=== PATIENT | male | born 1970 | race Caucasian/White ===

== ENCOUNTER 2016-11-05 12:46 | Emergency (ER) | payer OTHER ==
--- NOTE | 2016-11-05 14:02 | ED CLINICAL REPORT ---
Clinical Report - Physicians/Mid Levels [facility] [address] [place] [address] 11/05/2016 12:47 Patient: CARLEY ORTA Time Seen: 12:54. Arrived- By private vehicle. Historian- patient and family. HISTORY OF PRESENT ILLNESS Chief Complaint: NAUSEA, VOMITING and HEADACHE. At its maximum, severity described as moderate. When seen in the E.D., severity described as moderate. Modifying factors- worsened by movement. Relieved by rest. (bright light and noise make the BEDOLLA worse; closing the eyes improves the pain). This started today and is still present. It was gradual in onset and has been waxing/waning. The patient has had a right-sided and left-sided headache, fatigue and generalized weakness. No muscle aches. (Has a migraine and states has been getting migraines on the weekends. This stated at 0230 and pt c/o major head pain in the anglican area. Every time he eats or drinks something he throws up. Patient tried zofran and he still threw up. He states that he has been getting these BEDOLLA's on the weekend when he sleeps longer and deeper - during the week days, he wakes up at 04:00.). Similar symptoms previously: Many times. ( He states that he has the same type of BEDOLLA "every weekend" for "a long time". Today he is noting nausea and vomiting, but otherwise there is nothing new or different about his BEDOLLA today). Recent medical care: The patient was seen recently in a clinic. REVIEW OF SYSTEMS No fever, sore throat, sinus drainage, nasal congestion or cough. No difficulty breathing, chest pain, abdominal pain, diarrhea or black stools. No bloody stools, difficulty with urination, skin rash, back pain or calf pain. The patient has had nausea. He has had moderate vomiting. The vomiting has occurred several times. No bilious emesis, blood-tinged emesis, frankly bloody emesis or unusually dark emesis. He has had a moderate right-sided and left-sided headache. The headache has been similar to previous ones. The patient has a history of migraine headaches. No difficulty with ambulation. All systems otherwise negative, except as recorded above. PAST HISTORY Type II diabetes mellitus. History of headaches. Surgeries: Right carpal tunnel surgery. (Hand surgery). SOCIAL HISTORY Smoker- current status unknown. Occasional alcohol use. No drug use. ADDITIONAL NOTES The nursing notes have been reviewed. PHYSICAL EXAM Vital Signs: 11/05/2016 12:56 BP: 136/86. HR: 86. RR: 18. O2 saturation: 95%. Temp: 97.7 F. Appearance: Alert. Patient in moderate distress. Eyes: Conjunctivae and sclerae appear normal to inspection. Corneas appear normal to inspection. Pupils equal, round and reactive to light. Accommodation normal. Eyes normal inspection. EOMs intact. No scleral icterus or pale conjunctivae. Anterior chambers clear. Anterior chambers of normal depth. Rt Eye: Angle not shallow. Lt Eye: Angle not shallow. ENT: Pharynx normal. No pharyngeal erythema or tonsillar exudate. The mucous membranes are not dry. Neck: Normal inspection. Neck supple. CVS: Normal heart rate and rhythm. Heart sounds normal. Pulses normal. Respiratory: No respiratory distress. Breath sounds normal. Abdomen: No visible injury. Soft and nontender. No mass. Back: Normal inspection. Skin: No cyanosis. Skin warm and dry. Normal skin color. No rash. Normal skin turgor. No pallor or diaphoresis. Extremities: Extremities exhibit normal ROM. No calf tenderness. No lower extremity edema. Neuro: Oriented X 3. No motor deficit. No sensory deficit. Reflexes normal. Reflex exam: left biceps 2+, right patellar 2+, left patellar 2+, right Achilles 2+ and left Achilles 2+. LABS, X-RAYS, AND EKG EKG: EKG time: (13:22). Normal sinus rhythm. Rate: 85. Normal P waves. Normal EMILIA. Normal QRS complex. Normal axis. Normal ST and T waves. The study has been interpreted contemporaneously by me. The EKG appears to be a good tracing. Rhythm Strip #1: Normal sinus rhythm. Regular rhythm. Narrow QRS complexes. No ectopy. Laboratory Tests: CBC w Diff: (MANA: 11/05/2016 13:15) ( MsgRcvd 11/05/2016 13:23) Final results Test Result Flag Units (Reference) WHITE BLOOD COUNT 6.3 K/uL (4.5-11.5) RED BLOOD COUNT 5.24 M/uL (4.50-5.90) HEMOGLOBIN 15.1 gm/dL (13.5-17.5) HEMATOCRIT 44.2 % (41.0-53.0) MEAN CELL VOLUME 84 fL (80-100) MEAN CORPUSCULAR HGB 29 pg (26-34) MEAN CORPUSCULAR HGB CONC 34 g/dL (31-37) RED CELL DISTRIBUTION WIDTH 12.6 % (11.6-14.8) PLATELET COUNT 313 K/uL (150-400) NEUTROPHIL % 71.5 % (50-75) LYMPH % 21.8 L % (25-40) MONO % 5.2 % (3-14) EOSINOPHIL % 1.2 % (0-4) BASOPHIL % 0.3 % (0-2) PT with INR: (MANA: 11/05/2016 13:15) ( [facility] 11/05/2016 13:34) Final results Test Result Flag Units (Reference) INR 1.0 (0.8-1.2) Low Intensity Therapy: INR 1.5-2.0 PT range 18.5-23.1Mod.Intensity Therapy: INR 2.0-3.0 PT range 23.1-31.5High Intensity Therapy: INR 2.5-3.5 PT range 27.4-35.5High Intensity Therapy 2: INR 3.0-4.0 PT range 31.5-39.3 Acetone, Serum: (MANA: 11/05/2016 13:15) ( [facility] 11/05/2016 13:40) Final results Test Result Flag Units (Reference) ACETONE, SERUM QUALITATIVE NEGATIVE (NEGATIVE) BNP: (MANA: 11/05/2016 13:15) ( [facility] 11/05/2016 13:43) Final results Test Result Flag Units (Reference) B-TYPE NATRIURETIC PEPTIDE 49.1 pg/ml (5-100) CHEM 13 PANEL: (MANA: 11/05/2016 13:15) ( MsgRcvd 11/05/2016 14:41) Final results Test Result Flag Units (Reference) GLUCOSE 204 H mg/dL (70-110) BUN 12 mg/dL (7-18) CREATININE 0.7 mg/dL (0.6-1.3) Estimated GFR >60 mL/min Estimated GFR- >60 mL/min Note: Persistent reduction over 3 months in eGFR<60 mL/min/1.73 m2 defines CKD. Patients with eGFR values>=60 mL/min/1.73 m2 may also have CKD if evidence ofpersistent proteinuria. Additional information may be foundat [email or web address].org. SODIUM 138 mmol/L (136-145) POTASSIUM 4.1 mmol/L (3.5-5.1) CHLORIDE 101 mmol/L (98-107) CARBON DIOXIDE 26 mmol/L (21-32) CALCIUM 8.4 L mg/dL (8.5-10.1) TOTAL PROTEIN 8.0 g/dL (6.4-8.2) ALBUMIN 3.9 g/dL (3.3-5.0) BILIRUBIN, TOTAL 0.5 mg/dL (0.0-1.0) ALKALINE PHOSPHATASE 76 U/L (46-116) AST (SGOT) 46 H U/L (15-37) ALT (SGPT) 89 H U/L (12-78) MAGNESIUM 1.8 mg/dL (1.8-2.4) LIPASE 134 U/L (73-393) AMYLASE 38 U/L (25-115) CPK 74 U/L (24-260) TROPONIN I <0.05 ng/mL (0.00-1.5) TROPONIN REFERENCE RANGE:<0.1 NEGATIVE0.1-1.5 INDETERMINANT>1.5 POSITIVE THYROID STIMULATING HORMONE 0.794 uIU/mL (0.34-3.74) . Pulse Oximetry: 11/05/2016 12:56 O2 saturation: 95%. (FIO2 - room air). Interpretation: normal. PROGRESS AND PROCEDURES Course of Care: Pt states that other than nausea/ vomiting, there is nothing new or different about his BEDOLLA today. I have discussed performing CT and / or LP, but he wishes to defer this now as there is a low clinical likelihood of positive result and definite radiation exposure and definite discomfort and risk from LP procedure 14:01 11/05/16. Patient is stable. The patient's symptoms are now gone. Physical exam findings are improved. Patient and spouse counseled in person regarding the patient's test results, diagnosis and need for follow-up. Old ED records reviewed. Disposition: Discharged. Condition: stable and improved. CLINICAL IMPRESSION Chronic, poorly controlled tension and vascular headache. Chronic, moderately well controlled type 2 diabetes with hyperglycemia. No coma. Abnormal liver function test: AST/SGOT and ALT/SGPT. INSTRUCTIONS Do not work for two days. Drink plenty of fluids. No alcohol until released. Warnings: Further evaluation is necessary in order to recheck abnormal lab, obtain test results, conduct further tests and assess the possibility of serious illness (You may need a CT or MRI of your brain if not improving). It is very important to follow up with a physician. SEDATIVE MEDICATION: You were given sedative medication during your visit. Do not drive or operate dangerous machinery. CONTROLLED SUBSTANCE WARNINGS. GENERAL WARNINGS: Return or contact your physician immediately if your condition worsens or changes unexpectedly, if not improving as expected, or if other problems arise. Your Current Medications: CONTINUE TAKING THE FOLLOWING MEDICATIONS: Amaryl Oral. Lipitor Oral. MetFORMIN HCl Oral : 500 mg daily. Omperzole*. Prescription Medications: Hydrocodone/APAP 5mg / 325mg: take 1-2 orally every 8 hours as needed for pain. Dispense ten (10). No refill. Zofran (orally disintegrating tablets) 4 mg: take 1 orally every 8 hours as needed for nausea and vomiting. Dispense ten (10). No refill. Substitution is permissible. Phenergan suppositories 25 mg: Insert 1 rectally every 4 to 6 hours as needed for nausea or vomiting. Dispense ten (10). No refills. Substitution is permissible. Follow-up: Follow up with your doctor tomorrow. (Electronically signed by Isacc Call DO 11/05/2016 15:44)
--- NOTE | 2016-11-05 14:02 | ED NURSING NOTES ---
Clinical Report - Nurses [facility] [address] [place] [address] 11/05/2016 12:47 Patient: CARLEY ORTA TRIAGE Triage time 12:56 Nov 05 2016. Acuity: LEVEL 3. Chief Complaint: HEADACHE and MIGRAINE HEADACHE. ( 196 BG). SOFI COMA SCORE: [place] Coma Scale: 15- eyes open spontaneously (4); best verbal response- oriented x 4 (5); best motor response- obeys commands (6). --13:06 Adenike Jimenez R.N. 12:56 11/05/16. BP: 136/86. HR: 86. RR: 18. O2 saturation: 95%. Temp: 97.7 F. Pain level now 8/10. --13:06 Adenike Jimenez R.N. Weight: 136.5 kg stated. Height/Length: 75 inches Per Patient. BMI: 37.6. --13:05 Adenike Jimenez R.N. Medications MetFORMIN HCl Oral 500 mg, daily. --12:59 Adenike Jimenez R.N. Lipitor Oral. --12:59 Adenike Jimenez R.N. Amaryl Oral. --12:59 Adenike Jimenez R.N. Omperzole. --13:01 Adenike Jimenez R.N. Allergies No Known Drug Allergy. --12:59 Adenike Jimenez R.N. History Arrived by private vehicle. Historian: patient. Accompanied by family. This started last night. Patient was last known well (0830 PM). ( Has a migraine and states has been getting migraines on the weekends. This stated at 0230 and pt c/o major head pain in the sikh area. Every time he eats or drinks something he throws up. Patient tried zofran and he still threw up.). He has had nausea and vomiting. ( Headache). No weakness, numbness, fever or sinus pain. PAST MEDICAL HX: Diabetes mellitus. Headaches. Head injury. SOCIAL HX: Former smoker, end date 2013. Occasional alcohol use; consumes four beers a week. No drug use. No recent travel. No known contact with a sick individual. SELF HARM ASSESSMENT: A self harm assessment was performed. The patient answered "no" to the question "Have you recently felt down, depressed, or hopeless?" and "Do you have thoughts of harming or killing yourself?". FALL RISK ASSESSMENT: Fall risk assessment completed. No fall risk identified. NUTRITIONAL RISK ASSESSMENT: The nutritional risk assessment revealed no deficiencies. FUNCTIONAL ASSESSMENT: Functional assessment: no impairments noted. LEARNING NEEDS ASSESSMENT: The learning needs assessment revealed no barriers. ABUSE ASSESSMENT: Abuse assessment: (yes) The patient was asked "Do you feel safe in your home?". SKIN INTEGRITY ASSESSMENT: Skin integrity risk assessment completed. No skin integrity risk identified. --13: Adenike Jimenez R.N. PROBLEMS: Laceration. Diabetes Mellitus. Abrasion(s). Head Injury. Last Tetanus. --13: Adenike Jimenez R.N. ADDITIONAL SURGERIES: Carpal Tunnel Surgery. --13: Adenike Jimenez R.N. Interventions ID band on patient. --13: Adenike Jimenez R.N. PHYSICAL ASSESSMENT Ambulatory to room. GENERAL / NEURO / PSYCH: Alert. Oriented X 4. Appears in pain. Speech within normal limits. HEENT: No facial asymmetry noted. Sinus tenderness present. Photophobia present. Pupils equal, round and reactive to light. Runny nose. RESPIRATORY: Respirations not labored. Breath sounds within normal limits. CVS: Capillary refill less than 2 seconds. GI / : The patient has had nausea. Emesis noted. Abdomen soft and nontender. ( Yesterday last BM normal.). SKIN: Skin is warm and dry. --13: Adenike Jimenez R.N. NURSING PROGRESS NOTES The initial plan of care for this patient includes an assessment with efforts to address patient positioning and appropriate ambient lighting; impairment of the neurological system. Pulse oximeter and NIBP monitor placed on patient. Cold pack applied. Head of bed elevated 75 degrees. Reassurance given. Lights dimmed. Call light placed in reach. Side rails up x 1. Bed placed in lowest position. Brakes of bed on. --13: Adenike Jimenez R.N. 13:16 11/05/2016 Site #1 started via IV in the right hand with an 18g angiocath, with aseptic technique and good blood return; two attempts. Blood drawn: rainbow set. Labeled in the presence of the patient and sent to the lab. Saline lock flushed with 10 mL saline (Done by Jorge KINNEY). --13:16 Adenike Jimenez R.N. 13:16 11/05/2016 Zofran (Ondansetron HCl) IVP 4 mg given over 2 minute(s) via site #1. Allergies verified and confirmed 5 rights. IV patency established. IV site checked: no pain, redness, or swelling. IV flushed thoroughly pre- and post-medication administration. --13:16 Adenike Jimenez R.N. 13:18 11/05/2016 Started bag #1 1000 mL IV Fluids IV NS (Saline); at 1000 mL/hr over 1 hour(s) via site #1 via dial-a-flow. Allergies verified and confirmed 5 rights. IV patency established. IV site checked: no pain, redness, or swelling. IV flushed thoroughly pre- and post-medication administration. --13:18 Adenike Jimenez R.N. 13:19 11/05/2016 Dilaudid (HYDROmorphone HCl PF) IVP 1 mg given over 1 minute(s) via site #1. Allergies verified, confirmed 5 rights and sedative warning given to the patient and patient's family. IV patency established. IV site checked: no pain, redness, or swelling. IV flushed thoroughly pre- and post-medication administration. --13:19 Adenike Jimenez R.N. 13:19 11/05/2016 PHENERGAN (Promethazine HCl) IVP 12.5 mg given over 15 minute(s) via site #1. Allergies verified and confirmed 5 rights. IV patency established. IV site checked: no pain, redness, or swelling. IV flushed thoroughly pre- and post-medication administration. --13:19 Adenike Jimenez R.N. 13:39 11/05/16. EKG time: (1322 PM). EKG was ordered, performed by a tech and shown to the ED physician. --13:39 Claribel Hallman. DISPOSITION / DISCHARGE 14:25 11/05/2016 IV Fluids IV NS Discontinued: bag #1 infused. Total amount infused: 1000 mL. IV patency established. IV site checked: no pain, redness, or swelling. IV flushed thoroughly. --14:30 Adenike Jimenez R.N. 14:29 11/05/2016 Site #1 removed upon discharge. Catheter intact. Pressure dressing applied. --14:29 Adenike Jimenez R.N. Departure time: 14:Nov 05 2016. Condition at departure: improved. No learning barriers present. Discharge instructions provided and reviewed with the patient. Reviewed warnings. Reviewed medication(s). Treatments reviewed. Reviewed referrals. Patient verbalized understanding. Written instructions provided in Divehi. The patient was discharged home and accompanied by spouse. He left the Emergency Department ambulatory and via private vehicle. Patient driving. --14:30 Adenike Jimenez R.N. 14:28 11/05/16. BP: 132/82. HR: 86. RR: 11. O2 saturation: 97%. Temp: 98.4 F. Pain level now 0/10. --14:30 Adenike Jimenez R.N. Locked/Released at 11/05/2016 14:55 by Adenike Jimenez R.N.
--- NOTE | 2016-11-05 14:02 | ED ORDER SUMMARY ---
..... Patient: CARLEY ORTA OrderSheet [facility] VisitID: [id number] [place] [address] 46y, M Registration Date/Time: 11/05/2016 ORDER SHEET Weight: 136.5 kg (stated) Allergies: No Known Drug Allergy GENERAL ORDERS: Software Licensing Analyst (Continuous) (12:54 11/05/2016 PHutchinson DO) (Ack 13:08 OHushanandez) (13:21 LWhalen R.N.) UA-Culture if indicated Urgent (12:55 11/05/2016 PHutchinson DO) (Ack 13:06 OHushanandez) Cardiac Panel Stat (12:55 11/05/2016 PHutchinson DO) (Ack 13:06 OHushanandez) (13:18 JSimbeck R.N.) BNP Urgent (12:55 11/05/2016 PHutchinson DO) (Ack 13:06 OHushanandez) (13:18 JSimbeck R.N.) Amylase Urgent (12:55 11/05/2016 PHutchinson DO) (Ack 13:07 OHernandez) (13:18 JSimbeck R.N.) PT with INR Urgent (12:55 11/05/2016 PHutchinson DO) (Ack 13:07 OHernandez) (13:19 JSimbeck R.N.) TSH Urgent (12:55 11/05/2016 PHutchinson DO) (Ack 13:07 OHernandez) (13:19 JSimbeck R.N.) Urine Drug Screen Urgent (12:55 11/05/2016 PHutchinson DO) (Ack 13:07 OHernandez) Lipase Urgent (12:55 11/05/2016 PHutchinson DO) (Ack 13:07 OHernandez) (13:19 JSimbeck R.N.) Pulse oximeter (12:55 11/05/2016 PHutchinson DO) (Ack 13:08 OHernandez) (13:21 LWhalen R.N.) EKG - ER Stat (12:55 11/05/2016 PHutchinson DO) (Ack 13:14 OHernandez) (13:14 OHernandez) Vitals (12:55 11/05/2016 [facility]) (Ack 13:08 OHushanandez) (13:18 JSimbeck R.N.) POC Glucose (12:55 11/05/2016 [facility]) (13:07 LWhalen R.N.) Acetone, Serum Urgent (12:56 11/05/2016 [facility]) (Ack 13:07 INjorge) (13:19 JSimbeck R.N.) MEDICATION ORDERS: Phenergan IV 12.5 mg (HIGH ALERT MEDICATION, NOW) (13:06 11/05/2016 [facility]) (13:19 LWhalen R.N.) IV FLUIDS: IV NS : initial bolus 1000 mL (1000 mL/hr), then 500 mL/hr for X2 (NOW) (12:54 11/05/2016 [facility]) (13:18 LWhalen R.N.) Zofran IV 4 mg (may repeat x 1 prn nausea) (12:55 11/05/2016 [facility]) (13:16 LWhalen R.N.) Dilaudid IV 1 mg (HIGH ALERT MEDICATION, NOW) (13:06 11/05/2016 [facility]) (13:19 LWhalen R.N.) ORDER SHEET NOTES: [Electronically signed by Adenike Jimenez R.N. (14:55 11/05/2016)] [Electronically signed by Isacc Call DO (15:44 11/05/2016)] [Electronically locked/signed by Adenike Jimenez R.N. (14:55 11/05/2016)]
--- NOTE | 2016-11-05 14:02 | ED ORDER SUMMARY ---
..... Patient: CARLEY ORTA OrderSheet [facility] VisitID: [id number] [place] [address] 46y, M Registration Date/Time: 11/05/2016 ORDER SHEET Weight: 136.5 kg (stated) Allergies: No Known Drug Allergy GENERAL ORDERS: Crane Service Technician (Continuous) (12:54 11/05/2016 PHutchinson DO) (Ack 13:08 OHushanandez) (13:21 LWhalen R.N.) UA-Culture if indicated Urgent (12:55 11/05/2016 PHutchinson DO) (Ack 13:06 OHushanandez) Cardiac Panel Stat (12:55 11/05/2016 PHutchinson DO) (Ack 13:06 OHushanandez) (13:18 JSimbeck R.N.) BNP Urgent (12:55 11/05/2016 PHutchinson DO) (Ack 13:06 OHushanandez) (13:18 JSimbeck R.N.) Amylase Urgent (12:55 11/05/2016 PHutchinson DO) (Ack 13:07 OHernandez) (13:18 JSimbeck R.N.) PT with INR Urgent (12:55 11/05/2016 PHutchinson DO) (Ack 13:07 OHernandez) (13:19 JSimbeck R.N.) TSH Urgent (12:55 11/05/2016 PHutchinson DO) (Ack 13:07 OHernandez) (13:19 JSimbeck R.N.) Urine Drug Screen Urgent (12:55 11/05/2016 PHutchinson DO) (Ack 13:07 OHernandez) Lipase Urgent (12:55 11/05/2016 PHutchinson DO) (Ack 13:07 OHernandez) (13:19 JSimbeck R.N.) Pulse oximeter (12:55 11/05/2016 PHutchinson DO) (Ack 13:08 OHernandez) (13:21 LWhalen R.N.) EKG - ER Stat (12:55 11/05/2016 PHutchinson DO) (Ack 13:14 OHernandez) (13:14 OHernandez) Vitals (12:55 11/05/2016 [facility]) (Ack 13:08 OHushanandez) (13:18 JSimbeck R.N.) POC Glucose (12:55 11/05/2016 [facility]) (13:07 LWhalen R.N.) Acetone, Serum Urgent (12:56 11/05/2016 [facility]) (Ack 13:07 TNjorge) (13:19 JSimbeck R.N.) MEDICATION ORDERS: Phenergan IV 12.5 mg (HIGH ALERT MEDICATION, NOW) (13:06 11/05/2016 [facility]) (13:19 LWhalen R.N.) IV FLUIDS: IV NS : initial bolus 1000 mL (1000 mL/hr), then 500 mL/hr for X2 (NOW) (12:54 11/05/2016 [facility]) (13:18 LWhalen R.N.) Zofran IV 4 mg (may repeat x 1 prn nausea) (12:55 11/05/2016 [facility]) (13:16 LWhalen R.N.) Dilaudid IV 1 mg (HIGH ALERT MEDICATION, NOW) (13:06 11/05/2016 [facility]) (13:19 LWhalen R.N.) ORDER SHEET NOTES: [Electronically signed by Adenike Jimenez R.N. (14:55 11/05/2016)] [Electronically signed by Isacc Call DO (15:44 11/05/2016)] [Electronically locked/signed by Adenike Jimenez R.N. (14:55 11/05/2016)]
--- NOTE | 2016-11-05 15:44 | ED DISCHARGE INSTRUCTIONS ---
Patient: CARLEY ORTA General Instructions [facility] VisitID: [id number] [address] [place] [address] 46y, M Registration Date/Time: 11/05/2016 Chronic, poorly controlled tension and vascular headache. Chronic, moderately well controlled type 2 diabetes with hyperglycemia. No coma. Abnormal liver function test: AST/SGOT and ALT/SGPT. INSTRUCTIONS Do not work for two days. Drink plenty of fluids. No alcohol until released. Warnings: Further evaluation is necessary in order to recheck abnormal lab, obtain test results, conduct further tests and assess the possibility of serious illness (You may need a CT or MRI of your brain if not improving). It is very important to follow up with a physician. SEDATIVE MEDICATION: You were given sedative medication during your visit. Do not drive or operate dangerous machinery. CONTROLLED SUBSTANCE WARNINGS. GENERAL WARNINGS: Return or contact your physician immediately if your condition worsens or changes unexpectedly, if not improving as expected, or if other problems arise. Your Current Medications: CONTINUE TAKING THE FOLLOWING MEDICATIONS: Amaryl Oral. Lipitor Oral. MetFORMIN HCl Oral : 500 mg daily. Omperzole*. Prescription Medications: Hydrocodone/APAP 5mg / 325mg: take 1-2 orally every 8 hours as needed for pain. Dispense ten (10). No refill. Zofran (orally disintegrating tablets) 4 mg: take 1 orally every 8 hours as needed for nausea and vomiting. Dispense ten (10). No refill. Substitution is permissible. Phenergan suppositories 25 mg: Insert 1 rectally every 4 to 6 hours as needed for nausea or vomiting. Dispense ten (10). No refills. Substitution is permissible. Follow-up: Follow up with your doctor tomorrow. ADDITIONAL INFORMATION Diabetes with High Blood Sugar You have been treated for high blood sugar (hyperglycemia). This may be becauseof an infection or other illness;eating too many sweets or starches ; not taking enough insulin. Home care High blood sugar may cause symptoms that you can learn to recognize, such as these: If you feel like your blood sugar may be too high, measure it using a blood or urine test. If it is above your usual range, use the "sliding scale"rRegular insulin dose your doctor gave you to correct this. If no "sliding scale" orders were given, contact your doctor for further advice. If your blood sugar is over 300, and you can't reach your doctor, go to the hospital emergency room. Monitor and write down your blood sugars - and insulin dose, if you take insulin - atleast twice a day. Do this before breakfast and before dinner. Do this for the next 3 to 5 days. Follow-up care Follow up with your health care provderduring the next week to review your blood sugar records. You will find out if you need to adjust your dose of insulin or other medicine for blood sugar. When to seek medical care Get prompt medical attention if either of these occur: High blood sugar.Symptoms are frequent urination, feeling dizzy, thirst, headache, nausea or vomiting, abdominal pain, and drowsiness or loss of consciousness. Low blood sugar. Symptoms are fatigue, headache, shakes, excess sweating, hunger, anxiety, reduced vision, drowsiness, weakness, confusion or loss of consciousness, and seizure. Headache [Unspecified] The cause of your headache today is not clear, but it does not appear to be the sign of any serious illness. Under stress, some people tense the muscles of their shoulder, neck and scalp without knowing it. If this condition lasts long enough, a TENSION HEADACHE can occur. A MIGRAINE HEADACHE is caused by changes in blood flow to the brain. A migraine attack may be triggered by emotional stress, hormone changes during the menstrual cycle, oral contraceptives, alcohol use, certain foods containing tyramine, eye strain, weather changes, missing meals, lack of sleep or oversleeping. Other causes of headache include a viral illness with high fever, head injury with concussion, sinus, ear or throat infection, dental pain and TMJ (jaw joint) pain. More serious but less common causes of headache include stroke, brain hemorrhage, brain tumor, meningitis and encephalitis. Home Care: If you were given pain medicine for this headache, do not drive yourself home. Arrange for a ride, instead. When you get home, try to sleep. You should feel much better when you wake up. Apply heat to the back of your neck to relieve neck muscle spasm. Migraine headaches may respond best to an ice pack on the forehead or at the base of the skull. If you are having nausea or vomiting, follow a light diet until your headache is relieved. If you have a migraine type headache, use sunglasses when in the daylight or around bright indoor lighting until symptoms improve. Bright glaring light can worsen this kind of headache. Follow Up with your doctor if the headache is not better within the next 24 hours. If you have frequent headaches you should discuss a treatment plan with your primary care doctor. By being aware of the earliest signs of headache, and starting treatment right away, you may be able to stop the pain yourself. Get Prompt Medical Attention if any of the following occur: Worsening of your head pain or no improvement within 24 hours Repeated vomiting (unable to keep liquids down) Fever of 100.4F (38C) or higher, or as directed by your healthcare provider Stiff neck Extreme drowsiness, confusion or fainting Dizziness, vertigo (dizziness with spinning sensation) Weakness of an arm or leg or one side of the face Difficulty with speech or vision Hydrocodone Bitartrate, Acetaminophen Oral tablet What is this medicine? ACETAMINOPHEN; HYDROCODONE (a set a ROCAEL lissette fen; laxmi droe KOE done) is a pain reliever. It is used to treat mild to moderate pain. How should I use this medicine? Take this medicine by mouth. Swallow it with a full glass of water. Follow the directions on the prescription label. If the medicine upsets your stomach, take the medicine with food or milk. Do not take more than you are told to take. Talk to your automobile insurance claim examiner regarding the use of this medicine in children. This medicine is not approved for use in children. What side effects may I notice from receiving this medicine? Side effects that you should report to your doctor or health manager critical care unit as soon as possible: allergic reactions like skin rash, itching or hives, swelling of the face, lips, or tongue breathing problems confusion feeling faint or lightheaded, falls stomach pain yellowing of the eyes or skin Side effects that usually do not require medical attention (report to your doctor or health manager critical care unit if they continue or are bothersome): nausea, vomiting stomach upset What may interact with this medicine? alcohol antihistamines isoniazid medicines for depression, anxiety, or psychotic disturbances medicines for sleep muscle relaxants naltrexone narcotic medicines (opiates) for pain phenobarbital ritonavir tramadol What if I miss a dose? If you miss a dose, take it as soon as you can. If it is almost time for your next dose, take only that dose. Do not take double or extra doses. Where should I keep my medicine? Keep out of the reach of children. This medicine can be abused. Keep your medicine in a safe place to protect it from theft. Do not share this medicine with anyone. Selling or giving away this medicine is dangerous and against the law. Store at room temperature between 15 and 30 degrees C (59 and 86 degrees F). Protect from light. Keep container tightly closed. Throw away any unused medicine after the expiration date. Discard unused medicine and used packaging carefully. Pets and children can be harmed if they find used or lost packages. What should I tell my health care provider before I take this medicine? They need to know if you have any of these conditions: brain tumor Crohn's disease, inflammatory bowel disease, or ulcerative colitis drink more than 3 alcohol-containing drinks per day drug abuse or addiction head injury heart or circulation problems kidney disease or problems going to the bathroom liver disease lung disease, asthma, or breathing problems an unusual or allergic reaction to acetaminophen, hydrocodone, other opioid analgesics, other medicines, foods, dyes, or preservatives or trying to get breast-feeding What should I watch for while using this medicine? Tell your doctor or health manager critical care unit if your pain does not go away, if it gets worse, or if you have new or a different type of pain. You may develop tolerance to the medicine. Tolerance means that you will need a higher dose of the medicine for pain relief. Tolerance is normal and is expected if you take the medicine for a long time. Do not suddenly stop taking your medicine because you may develop a severe reaction. Your body becomes used to the medicine. This does NOT mean you are addicted. Addiction is a behavior related to getting and using a drug for a non-medical reason. If you have pain, you have a medical reason to take pain medicine. Your doctor will tell you how much medicine to take. If your doctor wants you to stop the medicine, the dose will be slowly lowered over time to avoid any side effects. You may get drowsy or dizzy when you first start taking the medicine or change doses. Do not drive, use machinery, or do anything that may be dangerous until you know how the medicine affects you. Stand or sit up slowly. There are different types of narcotic medicines (opiates) for pain. If you take more than one type at the same time, you may have more side effects. Give your health care provider a list of all medicines you use. Your doctor will tell you how much medicine to take. Do not take more medicine than directed. Call emergency for help if you have problems breathing. The medicine will cause constipation. Try to have a bowel movement at least every 2 to 3 days. If you do not have a bowel movement for 3 days, call your doctor or health manager critical care unit. Too much acetaminophen can be very dangerous. Do not take Tylenol (acetaminophen) or medicines that contain acetaminophen with this medicine. Many non-prescription medicines contain acetaminophen. Always read the labels carefully. Ondansetron Oral disintegrating tablet What is this medicine? ONDANSETRON (on DON se jazmin) is used to treat nausea and vomiting caused by chemotherapy. It is also used to prevent or treat nausea and vomiting after surgery. How should I use this medicine? These tablets are made to dissolve in the mouth. Do not try to push the tablet through the foil backing. With dry hands, peel away the foil backing and gently remove the tablet. Place the tablet in the mouth and allow it to dissolve, then swallow. While you may take these tablets with water, it is not necessary to do so. Talk to your automobile insurance claim examiner regarding the use of this medicine in children. Special care may be needed. What side effects may I notice from receiving this medicine? Side effects that you should report to your doctor or health manager critical care unit as soon as possible: allergic reactions like skin rash, itching or hives, swelling of the face, lips, or tongue breathing problems dizziness fast or irregular heartbeat feeling faint or lightheaded, falls fever and chills swelling of the hands and feet tightness in the chest Side effects that usually do not require medical attention (report to your doctor or health manager critical care unit if they continue or are bothersome): constipation or diarrhea headache What may interact with this medicine? Do not take this medicine with any of the following medications: -apomorphine -cisapride -dofetilide -dronedarone -pimozide -thioridazine -ziprasidone This medicine may also interact with the following medications: -carbamazepine -phenytoin -rifampicin -tramadol -other medicines that prolong the QT interval (cause an abnormal heart rhythm) What if I miss a dose? If you miss a dose, take it as soon as you can. If it is almost time for your next dose, take only that dose. Do not take double or extra doses. Where should I keep my medicine? Keep out of the reach of children. Store between 2 and 30 degrees C (36 and 86 degrees F). Throw away any unused medicine after the expiration date. What should I tell my health care provider before I take this medicine? They need to know if you have any of these conditions: heart disease history of irregular heartbeat liver disease low levels of magnesium or potassium in the blood an unusual or allergic reaction to ondansetron, granisetron, other medicines, foods, dyes, or preservatives or trying to get breast-feeding What should I watch for while using this medicine? Check with your doctor or health manager critical care unit as soon as you can if you have any sign of an allergic reaction. Promethazine Hydrochloride Rectal suppository What is this medicine? PROMETHAZINE (proe METH a zeen) is an antihistamine. It is used to treat allergic reactions and to treat or prevent nausea and vomiting from illness or motion sickness. It is also used to make you sleep before surgery, and to help treat pain or nausea after surgery. How should I use this medicine? This medicine is for rectal use only. Do not take by mouth. Wash your hands before and after use. Take off the foil wrapping. Wet the tip of the suppository with cold tap water to make it easier to use. Lie on your side with your lower leg straightened out and your upper leg bent forward toward your stomach. Lift upper buttock to expose the rectal area. Apply gentle pressure to insert the suppository completely into the rectum, pointed end first. Hold buttocks together for a few seconds. Remain lying down for about 15 minutes to avoid having the suppository come out. Do not use more often than directed. Talk to your automobile insurance claim examiner regarding the use of this medicine in children. Special care may be needed. This medicine should not be given to infants and children younger than 2 years old. What side effects may I notice from receiving this medicine? Side effects that you should report to your doctor or health manager critical care unit as soon as possible: blurred vision irregular heartbeat, palpitations or chest pain muscle or facial twitches pain or difficulty passing urine seizures skin rash slowed or shallow breathing unusual bleeding or bruising yellowing of the eyes or skin Side effects that usually do not require medical attention (report to your doctor or health manager critical care unit if they continue or are bothersome): headache nightmares, agitation, nervousness, excitability, not able to sleep (these are more likely in children) stuffy nose What may interact with this medicine? Do not take this medicine with any of the following medications: medicines called MAO Inhibitors like Nardil, Parnate, Marplan, Eldepryl other phenothiazines like trimethobenzamide This medicine may also interact with the following medications: barbiturates such as phenobarbital bromocriptine certain antidepressants certain antihistamines used in allergy or cold medicines epinephrine levodopa medicines for sleep medicines for mental problems and psychotic disturbances medicines for movement abnormalities as in Parkinson's disease, or for gastrointestinal problems muscle relaxants prescription pain medicines What if I miss a dose? If you miss a dose, use it as soon as you can. If it is almost time for your next dose, use only that dose. Do not use double doses. Where should I keep my medicine? Keep out of the reach of children. Store in a refrigerator between 2 and 8 degrees C (36 and 46 degrees F). Throw away any unused medicine after the expiration date. What should I tell my health care provider before I take this medicine? They need to know if you have any of these conditions: glaucoma high blood pressure or heart disease kidney disease liver disease lung or breathing disease, like asthma prostate trouble pain or difficulty passing urine seizures an unusual or allergic reaction to promethazine or phenothiazines, other medicines, foods, dyes, or preservatives or trying to get breast-feeding What should I watch for while using this medicine? Tell your doctor or health manager critical care unit if your symptoms do not start to get better in 1 to 2 days. You may get drowsy or dizzy. Do not drive, use machinery, or do anything that needs mental alertness until you know how this medicine affects you. To reduce the risk of dizzy or fainting spells, do not stand or sit up quickly, especially if you are an older patient. Alcohol may increase dizziness and drowsiness. Avoid alcoholic drinks. Your mouth may get dry. Chewing sugarless gum or sucking hard candy, and drinking plenty of water may help. Contact your doctor if the problem does not go away or is severe. This medicine may cause dry eyes and blurred vision. If you wear contact lenses you may feel some discomfort. Lubricating drops may help. See your eye doctor if the problem does not go away or is severe. This medicine can make you more sensitive to the sun. Keep out of the sun. If you cannot avoid being in the sun, wear protective clothing and use sunscreen. Do not use sun lamps or tanning beds/booths. If you are diabetic, check your blood-sugar levels regularly. You have been given the following additional information: Diabetic Hyperglycemia Headache, Unspecified Hydrocodone Bitartrate, Acetaminophen Oral tablet Ondansetron Oral disintegrating tablet Promethazine Hydrochloride Rectal suppository Do not work for two days. (Electronically signed by Isacc Call DO 11/05/2016 15:44)
--- NOTE | 2016-11-05 15:44 | ED MED RECONCILIATION SUMMARY ---
Patient: CARLEY ORTA Medication Reconciliation Report [facility] VisitID: [id number] [address] [place] [address] 46y, M Registration Date/Time: 11/05/2016 Weight: 136.5 kg Height/Length: 75 in. BMI: 37.6 ALLERGIES: No Known Drug Allergy The patient's Home Medications are listed below: CONTINUE TAKING THE FOLLOWING MEDICATIONS: Amaryl Oral Lipitor Oral MetFORMIN HCl Oral 500 mg, daily Omperzole The source(s) of the original Home Medication information: Not obtained. The following Medications were given to the patient in the Emergency Department: Zofran [IVP] IVP 4 mg, administered: 11/05/2016 1:16:00 PM IV NS IV Fluids bolus 0, then 1000 mL/hr, administered: 11/05/2016 1:18:00 PM Dilaudid [IVP] IVP 1 mg, administered: 11/05/2016 1:19:00 PM PHENERGAN [IVP] IVP 12.5 mg, administered: 11/05/2016 1:19:00 PM The following Medications were prescribed to the patient: Hydrocodone/APAP 5mg / 325mg: take 1-2 orally every 8 hours as needed for pain. Dispense ten (10). No refill. -- Isacc Call DO Zofran (orally disintegrating tablets) 4 mg: take 1 orally every 8 hours as needed for nausea and vomiting. Dispense ten (10). No refill. Substitution is permissible. -- Isacc Call DO Phenergan suppositories 25 mg: Insert 1 rectally every 4 to 6 hours as needed for nausea or vomiting. Dispense ten (10). No refills. Substitution is permissible. -- Isacc Call DO
--- NOTE | 2016-11-05 15:44 | ED MAR SUMMARY ---
..... Medication Administration Record [facility] [address] [place] [address] Patient: CARLEY ORTA Visit ID: [id number] 46y, M Weight: 136.5 kg Height/Length: 75 in BMI: 37.6 ALLERGIES: No Known Drug Allergy Given 13:16 11/05/2016 Adenike Jimenez R.N. Medication Administered: ZOFRAN [IVP] (ONDANSETRON HCL), Dose: 4 mg IVP over 2 minute(s), Site: #1 right hand. Medication Ordered: Zofran IV 4 mg (may repeat x 1 prn nausea). Start 13:18 11/05/2016 Adenike Jimenez R.N., Stop 14:25 11/05/2016 Adenike Jimenez R.N. Medication Administered: IV NS (SALINE), Dose: IV Fluids over 1 hour(s), Rate: 1000 mL/hr, Dispensed: 1000 mL bag, Site: #1 right hand. Medication Ordered: IV NS : initial bolus 1000 mL (1000 mL/hr), then 500 mL/hr for X2 (NOW). Given 13:11/05/2016 Adenike Jimenez R.N. Medication Administered: DILAUDID [IVP] (HYDROMORPHONE HCL PF), Dose: 1 mg IVP over 1 minute(s), Site: #1 right hand. Medication Ordered: Dilaudid IV 1 mg (HIGH ALERT MEDICATION, NOW). Given 13:11/05/2016 Adenike Jimenez R.N. Medication Administered: PHENERGAN [IVP] (PROMETHAZINE HCL), Dose: 12.5 mg IVP over 15 minute(s), Site: #1 right hand. Medication Ordered: Phenergan IV 12.5 mg (HIGH ALERT MEDICATION, NOW).
--- NOTE | 2016-11-05 15:44 | ED MAR SUMMARY ---
..... Medication Administration Record [facility] [address] [place] [address] Patient: CARLEY ORTA Visit ID: [id number] 46y, M Weight: 136.5 kg Height/Length: 75 in BMI: 37.6 ALLERGIES: No Known Drug Allergy Given 13:16 11/05/2016 Adenike Jimenez R.N. Medication Administered: ZOFRAN [IVP] (ONDANSETRON HCL), Dose: 4 mg IVP over 2 minute(s), Site: #1 right hand. Medication Ordered: Zofran IV 4 mg (may repeat x 1 prn nausea). Start 13:18 11/05/2016 Adenike Jimenez R.N., Stop 14:25 11/05/2016 Adenike Jimenez R.N. Medication Administered: IV NS (SALINE), Dose: IV Fluids over 1 hour(s), Rate: 1000 mL/hr, Dispensed: 1000 mL bag, Site: #1 right hand. Medication Ordered: IV NS : initial bolus 1000 mL (1000 mL/hr), then 500 mL/hr for X2 (NOW). Given 13:11/05/2016 Adenike Jimenez R.N. Medication Administered: DILAUDID [IVP] (HYDROMORPHONE HCL PF), Dose: 1 mg IVP over 1 minute(s), Site: #1 right hand. Medication Ordered: Dilaudid IV 1 mg (HIGH ALERT MEDICATION, NOW). Given 13:11/05/2016 Adenike Jimenez R.N. Medication Administered: PHENERGAN [IVP] (PROMETHAZINE HCL), Dose: 12.5 mg IVP over 15 minute(s), Site: #1 right hand. Medication Ordered: Phenergan IV 12.5 mg (HIGH ALERT MEDICATION, NOW).
--- NOTE | 2016-11-05 15:44 | ED MED RECONCILIATION SUMMARY ---
Patient: CARLEY ORTA Medication Reconciliation Report [facility] VisitID: [id number] [address] [place] [address] 46y, M Registration Date/Time: 11/05/2016 Weight: 136.5 kg Height/Length: 75 in. BMI: 37.6 ALLERGIES: No Known Drug Allergy The patient's Home Medications are listed below: CONTINUE TAKING THE FOLLOWING MEDICATIONS: Amaryl Oral Lipitor Oral MetFORMIN HCl Oral 500 mg, daily Omperzole The source(s) of the original Home Medication information: Not obtained. The following Medications were given to the patient in the Emergency Department: Zofran [IVP] IVP 4 mg, administered: 11/05/2016 1:16:00 PM IV NS IV Fluids bolus 0, then 1000 mL/hr, administered: 11/05/2016 1:18:00 PM Dilaudid [IVP] IVP 1 mg, administered: 11/05/2016 1:19:00 PM PHENERGAN [IVP] IVP 12.5 mg, administered: 11/05/2016 1:19:00 PM The following Medications were prescribed to the patient: Hydrocodone/APAP 5mg / 325mg: take 1-2 orally every 8 hours as needed for pain. Dispense ten (10). No refill. -- Isacc Call DO Zofran (orally disintegrating tablets) 4 mg: take 1 orally every 8 hours as needed for nausea and vomiting. Dispense ten (10). No refill. Substitution is permissible. -- Isacc Call DO Phenergan suppositories 25 mg: Insert 1 rectally every 4 to 6 hours as needed for nausea or vomiting. Dispense ten (10). No refills. Substitution is permissible. -- Isacc Call DO
== END 2016-11-05 14:30 | disposition home or self-care (01) ==
LOC: ED SRH 12:46
DX: G44.221 Chronic tension-type headache, intractable (principal); G44.1 Vascular headache, not elsewhere classified; E11.65 Type 2 diabetes mellitus with hyperglycemia; R94.5 Abnormal results of liver function studies; Z79.84 Long term (current) use of oral hypoglycemic drugs; Z79.899 Other long term (current) drug therapy
CPT/HCPCS: 90100; 90301; 90616; 91320; 92235; 92530; 92610; 92720; 93140; 94060; 95059